=== PATIENT | female | born 1945 | race Caucasian/White ===

== ENCOUNTER 2017-04-15 09:28 | Inpatient (IN) | payer MEDICARE, BC ==
[~2017-04-15] VITALS: Ht 157.5 cm; Wt 74.7 kg
[2017-04-28] MEDS ORDERED: METOPROLOL TARTRATE 25 MG TAB PO PRN (06:45)
[2017-04-28] MEDS ORDERED: INSULIN HUMAN REGULAR 1,000 UNITS/10 ML VIAL SQ PRN (06:45)
[2017-04-28] MEDS ORDERED: SODIUM CHLORID 0.9% 500 ML IV PRN (06:45)
[2017-04-28] MEDS ORDERED: POVIDONE IODINE 5% (ANTISEPSIS KIT) 4 APPLICATIONS EACH NARE PRN (06:45)
[2017-04-28] MEDS ORDERED: CHLORHEXIDINE GLUCONATE 2 % 1 PACK (2 CLOTHS) TOPICAL PRN (06:45)
[2017-04-28] MEDS ORDERED: LACTATED RINGER'S 1000 ML IV PRN (06:45)
--- NOTE | 2017-04-28 06:57 | HHI.DCPOC ---
Discharge Care Plan Diagnosis: (1) Primary localized osteoarthrosis, lower leg (2) Status post total knee replacement, right Your Health Problems Are: Difficulty with ADL Goals to Promote Your Health * To prevent worsening of your condition and complications * To maintain your health at the optimal level Directions to Meet Your Goals Take your medications as prescribed Follow your dietary instruction Follow activity as directed Keep your appointments as scheduled Take your immunizations and boosters as scheduled If your symptoms worsen call your PCP, if no PCP go to Urgent Care Center or Emergency Room Smoking is Dangerous to Your Health. Avoid second hand smoke Call the 24-hour hour crisis hotline for domestic abuse at Simon Baumann Apr 28, 2017 06:57
--- NOTE | 2017-04-28 06:58 | HHI.FF ---
Face to Face Verification Diagnosis: (1) Primary localized osteoarthrosis, lower leg (2) Status post total knee replacement, right Physical Therapy Gait training, Transfer training, bed to chair Knee: Total knee Right LE Weight Bearing: WB as tolerated Right LE Range of Motion: Active ROM Nursing Nursing: Erick teaching, Dressing changes Dressing Changes: Daily dressing change I have seen patient Chantel Horner on 04/28/17. My clinical findings support the need for the requested home health care services because: Limited ability to care for self High risk of falls I certify that my clinical findings support that this patient is homebound because: Post-op weakness Unsteady gait/balance Simon Baumann Apr 28, 2017 06:58
[2017-04-28] MEDS ORDERED: COMMODE 3-IN-11 MIS (06:59)
[2017-04-28] MEDS ORDERED: CPMMACHINE (06:59)
[2017-04-28] MEDS ORDERED: WALKER WHEELS/F1 MIS (06:59)
[2017-04-28] MEDS ORDERED: VANCOMYCIN 1000 MG/NS 250 ML (for <70 kg) IV SCH ×2 (07:00)
[2017-04-28] MEDS ORDERED: ceFAZolin 2 GM PREMIX 50 ML IV SCH (07:00)
[2017-04-28] MEDS ORDERED: DEXAMETHASONE SOD PHOS 20 MG/5 ML VIAL IV PUSH SCH (07:00)
[2017-04-28] MEDS ORDERED: POVIDONE IODINE 7.5% SCRUB 118 ML BOTTLE TOPICAL SCH (07:00)
[2017-04-28] MEDS ORDERED: EZET1TAB8 PO (07:10)
[2017-04-28] MEDS ORDERED: CLON0.1T PO (07:13)
[2017-04-28] MEDS ORDERED: RAMI10CA PO (07:13)
[2017-04-28] MEDS ORDERED: ATOR20TA15 PO (07:13)
[2017-04-28] MEDS ORDERED: METO100T PO (07:13)
[2017-04-28 07:17] VITALS: BP 135/73; PULSE 72; RESP 18; TEMP 98.2; O2SAT 98
[2017-04-28] MEDS ORDERED: TRANEXAMIC ACID INJ 670 MG in SODIUM CHLORIDE 0.9% INJ 100 ML IV SCH ×2 (08:30→10:30)
[2017-04-28] MEDS ORDERED: ROPIVACAINE PERI-ARTICULAR INJECTION. P-ARTICULR SCH ×5 (08:30)
--- NOTE | 2017-04-28 08:34 | EKG ---
Date Performed: 04/28/2017 Time Performed: 07:16:15 PTAGE: 72 years EKG: Sinus rhythm WITH FIRST DEGREE AV BLOCK ABNORMAL ECG NO PREVIOUS TRACING DOCTOR: Reese Bowden Interpretating Date/Time 04/28/2017 08:31:53
[2017-04-28] MEDS ORDERED: BUPIVACAINE LIPOSOME PF 1.3% 20 ML VIAL ONE (09:15)
[2017-04-28] MEDS ORDERED: GENTAMICIN SULFATE 80 MG/2 ML VIAL IRRIGATION ONE (09:25)
--- NOTE | 2017-04-28 10:28 | PD.OP ---
cc: Ramy Montoya MD Operative Report Date of Surgery: Apr 28, 2017 Preoperative Diagnosis: Right knee severe osteoarthritis Postoperative Diagnosis: Same Procedure: Right total knee arthroplasty Anesthesia: Spinal and adductor canal block Surgeon: Ramy Montoya Vice President Of Compliance(s): MARGARITA Georges The surgical procedure was assisted by my Advanced Registered Nurse Practitioner. My ELASTIC YARN TWISTER HELPER presence was necessary throughout this case for the manipulation and positioning of the surgical extremity. My ELASTIC YARN TWISTER HELPER was assisting me throughout the duration of this procedure. The skill set of an Advance Registered Nurse Practitioner was medically necessary to complete this procedure. During the surgical case, the surgical first assistant was working at the back table and the Advance Registered Nurse Practitioner was directly assisting me. Operation and Findings: IMPLANTS: DePuy Attune: Patella: size 32. Femur, posterior stabilized size 4. Tibia, rotating platform size 3. Tibial insert, rotating platform, posterior stabilized size 7 mm thickness. ESTIMATED BLOOD LOSS: 150 cc TOURNIQUET TIME: 37 minutes at 250 mmHg pressure. JUSTIFICATION FOR PROCEDURE: The patient has end-stage osteoarthritis to the knee. There is an attached conservative measures pathway form in the chart that describes the nonoperative measures that were undertaken prior to consideration of surgical management. The patient understood the risks and benefits of surgical management. See my office notes for further details PROCEDURE: The patient was brought back to the operative theatre. Adequate anesthesia was obtained. The patient received intravenous vancomycin and Ancef. The lower extremity was prepped and draped in the usual sterile fashion.The leg was exsanguinated, the tourniquet was raised. A standard anterior incision was performed followed by medial parapatellar arthrotomy was performed. End-stage arthritis was identified. Osteotomy of the patella was performed. We drilled holes for the patella. We trialed the patella component. We placed an intramedullary guide into the distal femur. We ultimately resected 13 mm off of the distal femur in 5 degrees of valgus. The remnants of the ACL and PCL were resected. Osteotomy of the proximal tibia was performed, resecting 5 mm off of the medial side. This was done with 3 degrees of posterior slope using an extramedullary guide. The distal end of the guide was placed in the mid aspect of the ankle. The femur was sized, and four chamfer cuts were completed in 3 of external rotation. We then cut the central box in the distal femur to replace the PCL. We resected the remnants of the menisci and removed osteophytes off of the femur and tibia. We then trialed the knee. We punched the tibia for the keel, and then used standard technique to cement in components. Excess cement was removed. We trialed the knee again and the final polyethylene thickness was chosen to provide extension to 0 degrees, and flexion of 140 degrees to gravity. The ligaments were appropriately balanced. Lateral release was necessary to obtain excellent patellofemoral tracking. The tourniquet was released and adequate hemostasis was obtained. An intra- articular injection of a ropivacaine cocktail was injected. The posterior knee was inspected for excess cement, which was removed. The final polyethylene was put into position after thorough irrigation. We then closed deep fascia with a #2 Stratafix followed by skin with 2-0 Vicryl followed by flash. Postop plan is to weight-bear as tolerated. DVT prophylaxis will be performed with Kermit, JEISON ramirez, early mobilization, and Lovenox followed by aspirin. Ramy Montoya MD Apr 28, 2017 10:28
[2017-04-28] MEDS ORDERED: ENOX40P SQ (10:30)
[2017-04-28] MEDS ORDERED: BISACODYL 10 MG SUPP RECTAL PRN (10:30)
[2017-04-28] MEDS ORDERED: Post-op Orders (for Pharmacy) MISC XX ONE (10:30)
[2017-04-28] MEDS ORDERED: NALOXONE HCL 0.4 MG/ML AMP IV PRN (10:30)
[2017-04-28] MEDS ORDERED: PERC5TAB12 PO (10:30)
[2017-04-28] MEDS ORDERED: MAGNESIUM HYDROXIDE SUSP 30 ML CUP PO PRN (10:30)
[2017-04-28] MEDS ORDERED: AMBI5TAB PO (10:30)
[2017-04-28] MEDS ORDERED: diphenhydrAMINE HCL 50 MG/ML VIAL IV PRN (10:30)
[2017-04-28] MEDS ORDERED: ASPI325T PO (10:30)
[2017-04-28] MEDS ORDERED: oxyCODONE/ACETAMINOPHEN 5 MG/325 MG TAB PO PRN (10:30)
[2017-04-28] MEDS ORDERED: ALUMINUM/MAGNESIUM/SIMETH 30 ML CUP PO PRN (10:30)
[2017-04-28] MEDS ORDERED: MORPHINE SULFATE 4 MG/ML INJ IV PUSH PRN (10:30)
[2017-04-28] MEDS ORDERED: SODIUM CHLORIDE 0.9% FLUSH 5 ML FLUSH IVF PRN (10:30)
[2017-04-28] MEDS ORDERED: ONDANSETRON HCL 4 MG/2 ML VIAL IVP PRN (10:30)
[2017-04-28] MEDS ORDERED: fentaNYL CITRATE 250 MCG/5 ML AMP ONE (11:02)
[2017-04-28] MEDS: SODIUM CHLOR 0.9% 1000 ML INJ 1,000 ML IV SCH ×2 (11:10→21:49)
[2017-04-28] MEDS ORDERED: DO NOT ADM ANY ANTICOAGULANT DRUGS PRN (11:15)
--- NOTE | 2017-04-28 11:40 | RADRPT ---
EXAM DATE/TIME: 04/28/2017 11:16 [place] COMPARISON: No previous studies available for comparison. INDICATIONS : Post-op right knee. MEDICAL HISTORY : None. SURGICAL HISTORY : None. ENCOUNTER: Initial ACUITY: 1 day PAIN SCORE: 0/10 LOCATION: Right Knee. FINDINGS: Two view examination of the right knee demonstrates a total knee arthroplasty in excellent position. There no obvious complications.. CONCLUSION: Status post total knee arthroplasty in excellent position. Reese Quiñones MD on April 28, 2017 at 11:38 Board Certified Radiologist. This report was verified electronically.
[2017-04-28] MEDS ORDERED: *morphine SULFATE 8 MG/ML PERIprocedure ONLY ONE (11:58)
--- NOTE | 2017-04-28 14:29 | PD.CONS ---
HPI Service [facility] Hospitalists Consult Requested By Dr. Montoya Primary Care Physician No Primary Care Physician Diagnoses: (1) Primary localized osteoarthrosis, lower leg (2) Status post total knee replacement, right History of Present Illness Written by Dania Dewitt, acting as scribe for Dr. Begum on 04/28/17 at 1437. Ms. Horner is a 72-year-old female patient with a known medical history of hypertension and hyperlipidemia who underwent a total right knee arthroplasty today by Dr. Montoya 04/28/17. Hospitalist team has been consulted for medical management. Patient states that she has underwent multiple arthroscopic surgeries on bilateral knees in the past. She also has been placed on many hypertension medications by her PCP and wishes to loose weight and wean off as tolerated. Her osteoarthritis in her right knee has worsened requiring multiple cortisone shots and outpatient therapy and overall causing an inability to get adequate exercise. It should be noted before surgery patient was found to have a UTI and treated with antibiotics. Denies any recent illness including fever, chills. cough, shortness of breath, abdominal pain, nausea, vomiting, diarrhea or dysuria. Review of Systems Musculoskeletal: COMPLAINS OF: Joint pain (knee pain ) Except as stated in HPI: all other systems reviewed are Neg Past Family Social History Allergies: Coded Allergies: No Known Allergies (Unverified , 04/28/17) Past Medical History Hypertension Dyslipidemia Past Surgical History Cholecystectomy C2 Earl fracture with halo Multiple arthroscopic surgeries, bilateral knees Reported Medications Reported Meds & Active Scripts Active Ambien (Zolpidem Tartrate) 5 Mg Tab 5 Mg PO HS PRN Aspirin 325 Mg Tab 325 Mg PO DAILY Start Aspirin after Lovenox is completed. Lovenox Inj (Enoxaparin Sodium) 40 Mg/0.4 Ml Syr 40 Mg SQ DAILY Start Aspirin after Lovenox is completed. Percocet (Oxycodone-Acetaminophen) 5-325 mg Tab 1-2 Tab PO Q4H PRN Reported Atorvastatin (Atorvastatin Calcium) 20 Mg Tab 20 Mg PO HS Ramipril 10 Mg Cap 10 Mg PO DAILY Clonidine (Clonidine HCl) 0.1 Mg Tab 0.1 Mg PO BID Metoprolol Tartrate 100 Mg Tab 100 Mg PO BID Ezetimibe 10 Mg Tab 10 Mg PO DAILY Active Ordered Medications Current Medications Medications (Trade) Dose Ordered Sig/Nena Route Start Time Stop Time Status Last Admin Lactated Ringer's 1,000 ml @ 30 mls/hr Q24H PRN IV 04/28/17 06:45 05/01/17 06:44 04/28/17 07:00 (NS 500 ml Inj) 500 ml @ 30 mls/hr [id number] PRN IV 04/28/17 06:45 05/01/17 06:44 Povidone Iodine 1 applic 1 applic ONCE TOPICAL 04/28/17 07:00 05/01/17 06:59 04/28/17 07:00 Tranexamic Acid 670 mg/Sodium Chloride 106.7 ml @ 200 mls/hr ONCE IV 04/28/17 08:30 04/29/17 08:29 04/28/17 09:00 (Naropin 0.5% Pf Inj/Toradol Inj/ Adrenalin (1:1000) Inj/ Duraclon Inj/NS Inj) 100 ml @ 200 mls/hr ONCE P-ARTICULR 04/28/17 08:30 04/29/17 08:29 04/28/17 10:10 (Decadron Inj) 10 mg ONCE IV PUSH 04/28/17 07:00 04/28/17 21:00 04/28/17 07:33 (Lipitor) 20 mg HS PO 04/28/17 21:00 (Catapres) 0.1 mg BID PO 04/28/17 21:00 (Zetia) 10 mg DAILY PO 04/29/17 09:00 (Lopressor) 100 mg BID PO 04/28/17 21:00 Ramipril 10 mg 10 mg DAILY PO 04/29/17 09:00 (NS 1000 ml Inj) 1,000 ml @ 100 mls/hr Q10H IV 04/28/17 12:00 04/28/17 11:10 (NS Flush) 2 ml UNSCH PRN IVF 04/28/17 10:30 IV Flush 2 ml 2 ml BID IVF 04/28/17 21:00 (Ancef Inj/NS Inj) 100 ml @ 200 mls/hr Q6H IV 04/28/17 14:00 04/29/17 02:29 04/28/17 14:00 (Decadron Inj) 10 mg ONCE ONCE IV 04/29/17 11:45 04/29/17 11:46 (Lovenox Inj) 40 mg Q24H SQ 04/29/17 10:00 05/08/17 10:01 (Percocet 5-325 Mg) 1 tab Q4H PRN PO 04/28/17 10:30 (Percocet 5-325 Mg) 2 tab Q4H PRN PO 04/28/17 10:30 (Theragran M Tab) 1 tab BID PO 04/29/17 21:00 06/28/17 20:59 (Zofran Inj) 4 mg Q6H PRN IVP 04/28/17 10:30 (Colace) 100 mg BID PO 04/29/17 21:00 (Mag-Al Plus Susp Liq) 30 ml Q6H PRN PO 04/28/17 10:30 (Ambien) 5 mg HS PRN PO 04/28/17 10:30 (Dulcolax Supp) 10 mg DAILY PRN RECTAL 04/28/17 10:30 (Milk Of Magnesia Liq) 30 ml DAILY PRN PO 04/28/17 10:30 (Narcan Inj) 0.4 mg UNSCH PRN IV 04/28/17 10:30 (Benadryl Inj) 25 mg Q6H PRN IV 04/28/17 10:30 (Morphine Inj) 2 mg Q3H PRN IV PUSH 04/28/17 10:30 Miscellaneous Information ALL NURSING DEPARTME... UNSCH PRN .XX 04/28/17 11:15 04/29/17 11:14 Family History Both paternal and maternal medical history significant for cardiovascular disease. Social History Patient denies any past or current tobacco use. Denies any illicit drug use. Admits to occasional alcohol consumption. Physical Exam Vital Signs Vital Signs Date Time Temp Pulse Resp B/P Pulse Ox O2 Delivery O2 Flow Rate FiO2 04/28/17 12:15 59 16 142/65 100 Nasal Cannula 2 04/28/17 12:00 97.5 61 16 159/71 100 Nasal Cannula 2 04/28/17 11:45 59 25 163/72 100 Nasal Cannula 2 04/28/17 11:30 95.6 58 25 160/72 100 Nasal Cannula 2 04/28/17 11:15 63 25 158/70 100 Nasal Cannula 2 04/28/17 11:00 69 23 168/71 100 Nasal Cannula 2 04/28/17 10:59 95.7 73 14 146/70 98 Nasal Cannula 2 04/28/17 07:17 98.2 72 18 135/73 98 Physical Exam GENERAL: Well-nourished, well-developed patient, in no apparent distress. SKIN: No rashes, ecchymoses or lesions. Warm and dry. Right lower extremity bandage in place, c/d/i. HEENT: Atraumatic. Normocephalic. Pupils equal round and reactive. Extraocular motions intact. No scleral icterus. No injection or drainage. Nose without bleeding. Airway patent. NECK: Trachea midline. No JVD. Supple. CARDIOVASCULAR: Regular rate and rhythm. No murmur appreciated. RESPIRATORY: Clear to auscultation. Breath sounds equal bilaterally. No wheezes , rales, or rhonchi. GASTROINTESTINAL: Abdomen soft, non-tender, nondistended. No guarding. MUSCULOSKELETAL: Extremities without clubbing, cyanosis, or edema. No joint tenderness, effusion, or edema noted. NEUROLOGICAL: Awake and alert. Cranial nerves II through XII intact. Motor and sensory grossly within normal limits. Five out of 5 muscle strength in all muscle groups. Normal speech. Laboratory Laboratory Tests Test 04/28/17 07:01 Blood Type A POSITIVE Antibody Screen NEGATIVE Blood Bank Comment Imaging Last Impressions Knee X-Ray 04/28/17 1024 Signed Impressions: Service Date/Time: Friday, April 28, 2017 11:16 - CONCLUSION: Status post total knee arthroplasty in excellent position. Reese Quiñones MD Assessment and Plan Assessment and Plan Ms. Horner is a 72-year-old female patient with a known medical history of hypertension and hyperlipidemia who underwent a total right knee arthroplasty today by Dr. Montoya 04/28/17. Hospitalist team has been consulted for medical management. Status post total right knee arthroplasty - Post op day 0, 04/28/17 - Dressing changes and immobilizer per ortho recommendations. - Monitor for constipation. Colace 100 mg PO BID. Milk Of Magnesium PRN as needed. - Encourage PO intake. Continue regular diet. - Control pain. Percocet 5/325 mg PO q4h PRN per pain scale. Morphine 2 mg IV PRN breakthrough. - Monitor for nausea, Zofran PRN. Hypertension, chronic: Continue clonidine 0.1 mg PO BID, Ramipril 10 mg PO daily and Metoprolol 100 mg PO BID. Elevated at this time. Monitor BP. Dyslipidemia, chronic: Continue Atorvastatin 20 mg PO HS and Ezetimibe 10 mg PO daily. GI prophylaxis: Protonix DVT prophylaxis: SCDs. Lovenox. Thank you for this consultation. Will follow with you. This note was transcribed by scribe [Dania Dewitt]. I, Dr. Simon Begum personally performed the history, physical exam, and medical decision making; and confirmed the accuracy of the information in the transcribed note. Authenticated by Dr. Simon Begum on 04/28/17 at 16:27. Dania Dewitt Apr 28, 2017 14:29 Simon Begum MD Apr 28, 2017 16:27
[2017-04-28] MEDS: oxyCODONE/ACETAMINOPHEN 5 MG/325 MG TAB PO PRN ×2 (15:40→21:46)
[2017-04-28] MEDS: SODIUM CHLORIDE 0.9% FLUSH 5 ML FLUSH IVF SCH (21:05)
[2017-04-28] MEDS: METOPROLOL TARTRATE 100 MG TAB PO SCH (21:07)
[2017-04-28] MEDS: cloNIDine HCL 0.1 MG TAB PO SCH (21:07)
[2017-04-28] MEDS: ATORVASTATIN 20 MG TAB PO SCH (21:07)
[2017-04-28] MEDS: ZOLPIDEM TARTRATE 5 MG TAB PO PRN (21:46)
[2017-04-28 21:47] VITALS: BP 138/67; PULSE 77; RESP 20; TEMP 99; O2SAT 97
[2017-04-28 21:56] VITALS: BP 138/67; PULSE 77; RESP 20; TEMP 99; O2SAT 97
[2017-04-29] VITALS (7 sets, daily range): BP systolic 117–160; BP diastolic 56–70; PULSE 64–75; RESP 12–18; TEMP 96.2–97.8; O2SAT 94–99
[2017-04-29] MEDS: oxyCODONE/ACETAMINOPHEN 5 MG/325 MG TAB PO PRN ×4 (06:03→20:38)
[2017-04-29 06:21] LABS: HEMATOCRIT 27.8 % (35.0-46.0); MEAN CELL VOLUME 88.8 FL (80.0-100.0); MEAN CORPUSCULAR HEMOGLOBIN 30.1 PG (27.0-34.0); MEAN CORPUSCULAR HGB CONC 33.9 % (32.0-36.0); PLATELET COUNT 169 TH/MM3 (150-450); RED BLOOD COUNT 3.13 MIL/MM3 (4.00-5.30); RED CELL DISTRIBUTION WIDTH 13.2 % (11.6-17.2); REVIEW FLAG FINAL
[2017-04-29 06:48] LABS: BICARBONATE 24.2 MEQ/L (21.0-32.0); POTASSIUM 3.5 MEQ/L (3.5-5.1)
[2017-04-29] MEDS: SODIUM CHLOR 0.9% 1000 ML INJ 1,000 ML IV SCH ×2 (08:00→19:21)
[2017-04-29] MEDS: cloNIDine HCL 0.1 MG TAB PO SCH ×2 (08:35→20:37)
[2017-04-29] MEDS: EZETIMIBE 10 MG TAB PO SCH (08:35)
[2017-04-29] MEDS: METOPROLOL TARTRATE 100 MG TAB PO SCH ×2 (08:35→20:37)
[2017-04-29] MEDS: RAMIPRIL 5 MG CAP PO SCH (08:35)
[2017-04-29] MEDS: SODIUM CHLORIDE 0.9% FLUSH 5 ML FLUSH IVF SCH ×2 (08:36→21:01)
[2017-04-29] MEDS: ENOXAPARIN SODIUM 40 MG/0.4 ML SYRINGE SQ SCH (10:32)
[2017-04-29] MEDS ORDERED: DEXAMETHASONE SOD PHOS 20 MG/5 ML VIAL IV ONE (11:45)
--- NOTE | 2017-04-29 11:56 | PD.ORT.PN ---
Subjective Post Op Day #: 1 Subjective Remarks The patient is resting in bed in NAD. Patient has minimal pain in the right knee. Patient requesting to go home tomorrow with home health. Objective Vitals Vital Signs Date Time Temp Pulse Resp B/P Pulse Ox O2 Delivery O2 Flow Rate FiO2 04/29/17 10:06 94 04/29/17 08:00 97.8 75 18 140/59 94 04/29/17 05:18 97.2 64 12 120/57 98 04/29/17 01:27 97.7 71 12 117/56 95 04/28/17 21:56 99.0 77 20 138/67 97 04/28/17 21:47 99.0 77 20 138/67 97 04/28/17 21:42 21 04/28/17 19:00 98.3 71 20 151/72 96 Room Air 04/28/17 17:00 74 20 164/68 99 Nasal Cannula 2 04/28/17 16:00 69 16 130/61 99 Nasal Cannula 2 04/28/17 15:20 Nasal Cannula 2 04/28/17 15:15 98.3 74 23 117/56 91 Room Air 04/28/17 14:00 71 16 145/65 94 Room Air 04/28/17 13:00 71 16 159/69 97 Room Air 04/28/17 12:30 Room Air 04/28/17 12:15 59 16 142/65 100 Nasal Cannula 2 04/28/17 12:00 97.5 61 16 159/71 100 Nasal Cannula 2 04/28/17 11:45 59 25 163/72 100 Nasal Cannula 2 I/O 04/28/17 04/28/17 04/28/17 04/29/17 04/29/17 04/29/17 07:00 15:00 23:00 07:00 15:00 23:00 Intake Total 1800 ml 2247 ml 480 ml Output Total 350 ml 925 ml 350 ml Balance 1450 ml 1322 ml 130 ml Intake Oral 1440 ml 480 ml IV Total 807 ml Other 1800 ml Output Urine Total 200 ml 925 ml 350 ml Estimated Blood Loss 150 ml Result Diagram: 04/29/17 0603 04/29/17 0603 Procedures Right TKA Objective Remarks Patient's dressing changed today with scant serosanguineous drainage. Incision is well approximated with surgical clips intact. No erythema or s/s of infection. Calf is soft and nontender. EHL/TA/G intact. + SILT. Assessment & Plan Ortho Post Op Day #: 1 Problem List: Assessment and Plan POD #1: Right TKA 1. WBAT RLE 2. Lovenox followed by ASA for DVT prophylaxis 3. Ice to the right knee PRN 4. Anticipatory discharge home with home health on Wednesday. Simon Baumann Apr 29, 2017 11:56
--- NOTE | 2017-04-29 13:54 | HHI.PR ---
Subjective Remarks Doing well postop. No nausea. Pain control. Ambulating well with PT. Tentative discharge for tomorrow. Objective Vital Signs Date Time Temp Pulse Resp B/P Pulse Ox O2 Delivery O2 Flow Rate FiO2 04/29/17 12:00 96.2 69 18 131/62 96 04/29/17 10:06 94 04/29/17 08:00 97.8 75 18 140/59 94 04/29/17 05:18 97.2 64 12 120/57 98 04/29/17 01:27 97.7 71 12 117/56 95 04/28/17 21:56 99.0 77 20 138/67 97 04/28/17 21:47 99.0 77 20 138/67 97 04/28/17 21:42 21 04/28/17 19:00 98.3 71 20 151/72 96 Room Air 04/28/17 17:00 74 20 164/68 99 Nasal Cannula 2 04/28/17 16:00 69 16 130/61 99 Nasal Cannula 2 04/28/17 15:20 Nasal Cannula 2 04/28/17 15:15 98.3 74 23 117/56 91 Room Air 04/28/17 14:00 71 16 145/65 94 Room Air I/O 04/28/17 04/28/17 04/28/17 04/29/17 04/29/17 04/29/17 06:59 14:59 22:59 06:59 14:59 22:59 Intake Total 1800 ml 2247 ml 480 ml Output Total 350 ml 925 ml 350 ml Balance 1450 ml 1322 ml 130 ml Intake Oral 1440 ml 480 ml IV Total 807 ml Other 1800 ml Output Urine Total 200 ml 925 ml 350 ml Estimated Blood Loss 150 ml Result Diagram: 04/29/17 0603 04/29/17 0603 Objective Remarks GENERAL: NAD, A&Ox3 HEAD: Normocephalic. NECK: Supple, trachea midline. No lymphadenopathy. EYES: No scleral icterus. No injection or drainage. CARDIOVASCULAR: Regular rate and rhythm without murmurs, gallops, or rubs. RESPIRATORY: Breath sounds equal bilaterally. No accessory muscle use. GASTROINTESTINAL: Abdomen soft, non-tender, nondistended. MUSCULOSKELETAL: No cyanosis, or edema. Right total knee, bandage. SKIN: Warm and dry. NEURO: No focal neurological deficitis. A/P Problem List: (1) Primary localized osteoarthrosis, lower leg ICD Code: M17.10 (2) Status post total knee replacement, right ICD Code: Z96.651 Assessment and Plan Assessment and Plan 72-year-old female admitted for right total knee. Doing well postop. Continue PT. Possible discharge tomorrow if she continues to do well with physical therapy. Status post total right knee arthroplasty When necessary pain treatments Stool softener as needed Continue PT Continue wound care. Hypertension Twice a day clonidine Ramipril Metoprolol Follow blood pressures Hyperlipidemia Atorvastatin and ezetimibe continued DVT prophylaxis SCDs and Lovenox Discharge planning possible discharge home tomorrow Simon Begum MD Apr 29, 2017 13:54
[2017-04-29] MEDS: ATORVASTATIN 20 MG TAB PO SCH (20:37)
[2017-04-29] MEDS: DOCUSATE SODIUM 100 MG CAP PO SCH (20:37)
[2017-04-29] MEDS: MULTIVITAMINS/MINERALS THERAPEUTIC TAB PO SCH (20:37)
[2017-04-29] MEDS: ZOLPIDEM TARTRATE 5 MG TAB PO PRN (20:38)
[2017-04-30] VITALS: BP 143/68; PULSE 76; RESP 16; TEMP 97.6; O2SAT 95
[2017-04-30] MEDS: SODIUM CHLOR 0.9% 1000 ML INJ 1,000 ML IV SCH ×2 (04:00→14:00)
[2017-04-30] MEDS: oxyCODONE/ACETAMINOPHEN 5 MG/325 MG TAB PO PRN ×3 (05:09→13:42)
[2017-04-30 07:00] LABS: HEMATOCRIT 23.3 % (35.0-46.0); MEAN CORPUSCULAR HEMOGLOBIN 30.6 PG (27.0-34.0); MEAN CORPUSCULAR HGB CONC 35.2 % (32.0-36.0); PLATELET COUNT 151 TH/MM3 (150-450); RED BLOOD COUNT 2.68 MIL/MM3 (4.00-5.30); RED CELL DISTRIBUTION WIDTH 13.2 % (11.6-17.2); REVIEW FLAG FINAL; WHITE BLOOD COUNT 9.1 TH/MM3 (4.0-11.0)
[2017-04-30 07:40] VITALS: BP 133/61; PULSE 66; RESP 17; TEMP 97.9; O2SAT 95
[2017-04-30] MEDS: SODIUM CHLORIDE 0.9% FLUSH 5 ML FLUSH IVF SCH (09:00)
[2017-04-30] MEDS: DOCUSATE SODIUM 100 MG CAP PO SCH (09:21)
[2017-04-30] MEDS: EZETIMIBE 10 MG TAB PO SCH (09:21)
[2017-04-30] MEDS: METOPROLOL TARTRATE 100 MG TAB PO SCH (09:21)
[2017-04-30] MEDS: MULTIVITAMINS/MINERALS THERAPEUTIC TAB PO SCH (09:21)
[2017-04-30] MEDS: cloNIDine HCL 0.1 MG TAB PO SCH (09:21)
[2017-04-30] MEDS: RAMIPRIL 5 MG CAP PO SCH (09:22)
[2017-04-30] MEDS: ENOXAPARIN SODIUM 40 MG/0.4 ML SYRINGE SQ SCH (09:24)
[2017-04-30] MEDS ORDERED: DOCU1CAP39 PO (10:35)
[2017-04-30] MEDS ORDERED: MAGN400S PO (10:35)
[2017-04-30 11:22] VITALS: BP 116/54; PULSE 55; RESP 17; TEMP 95.7; O2SAT 98
--- NOTE | 2017-04-30 13:45 | HHI.PR ---
Subjective Remarks Ambulating well. No complaints of pain when seen. She feels stable for discharge home and medically she is stable for discharge home today. Objective Vital Signs Date Time Temp Pulse Resp B/P Pulse Ox O2 Delivery O2 Flow Rate FiO2 04/30/17 11:22 95.7 55 17 116/54 98 04/30/17 07:40 97.9 66 17 133/61 95 04/30/17 00:00 97.6 76 16 143/68 95 04/29/17 21:53 21 04/29/17 20:00 97.6 68 16 160/66 99 04/29/17 16:00 97.8 66 18 138/70 94 I/O 04/29/17 04/29/17 04/29/17 04/30/17 04/30/17 04/30/17 07:00 15:00 23:00 07:00 15:00 23:00 Intake Total 480 ml 800 ml 480 ml 480 ml Output Total 350 ml 625 ml Balance 130 ml 175 ml 480 ml 480 ml Intake Oral 480 ml 800 ml 480 ml 480 ml Output Urine Total 350 ml 625 ml # Voids 1 2 # Bowel Movements 0 Result Diagram: 04/30/17 0628 04/29/17 0603 Objective Remarks GENERAL: NAD, A&Ox3 HEAD: Normocephalic. NECK: Supple, trachea midline. No lymphadenopathy. EYES: No scleral icterus. No injection or drainage. CARDIOVASCULAR: Regular rate and rhythm without murmurs, gallops, or rubs. RESPIRATORY: Breath sounds equal bilaterally. No accessory muscle use. GASTROINTESTINAL: Abdomen soft, non-tender, nondistended. MUSCULOSKELETAL: No cyanosis, or edema. Right total knee, bandage. SKIN: Warm and dry. NEURO: No focal neurological deficitis. A/P Problem List: (1) Primary localized osteoarthrosis, lower leg ICD Code: M17.10 (2) Status post total knee replacement, right ICD Code: Z96.651 Assessment and Plan Assessment and Plan 72-year-old female admitted for right total knee. Doing well postop. Continue PT. Possible discharge tomorrow if she continues to do well with physical therapy. Plan for discharge home today. Continue outpatient PT. Status post total right knee arthroplasty When necessary pain treatments Stool softener as needed Continue PT Continue wound care. Hypertension Twice a day clonidine Ramipril Metoprolol Follow blood pressures Hyperlipidemia Atorvastatin and ezetimibe continued DVT prophylaxis SCDs and Lovenox Discharge planning Discharge home today. Simon Begum MD Apr 30, 2017 13:45
--- NOTE | 2017-04-30 16:40 | HHI.DS ---
Discharge Summary Admission Date Apr 28, 2017 at 06:22 Discharge Date: Apr 30, 2017 Admitting Diagnosis Primary localized OA, lower leg Status post total knee replacement, right Diagnosis: (1) Primary localized osteoarthrosis, lower leg Diagnosis: Principal (2) Status post total knee replacement, right Diagnosis: Principal Procedures Right TKA Brief History This is a 72 year old female patient with severe OA of the right knee CBC/BMP: 04/30/17 0628 04/29/17 0603 Significant Findings Laboratory Tests Test 04/29/17 04/30/17 06:03 06:28 White Blood Count 13.0 TH/MM3 (4.0-11.0) Red Blood Count 3.13 MIL/MM3 2.68 MIL/MM3 (4.00-5.30) (4.00-5.30) Hemoglobin 9.4 GM/DL 8.2 GM/DL (11.6-15.3) (11.6-15.3) Hematocrit 27.8 % 23.3 % (35.0-46.0) (35.0-46.0) Blood Urea Nitrogen 21 MG/DL (7-18) Creatinine 1.04 MG/DL (0.50-1.00) Estimat Glomerular Filtration 52 ML/MIN (>89) Rate Random Glucose 150 MG/DL (74-106) Calcium Level 8.2 MG/DL (8.5-10.1) PE at Discharge Patient's dressing changed today with scant serosanguineous drainage. Incision is well approximated with surgical clips intact. No erythema or s/s of infection. Calf is soft and nontender. EHL/TA/G intact. + SILT. Hospital Course The patient was admitted to the hospital with severe OA of the right knee to have a right TKA. The patient's surgery went well without complication. The patient is WBAT on the RLE. The patient is on a regular diet. The patient is on Lovenox followed by ASA for DVT prophylaxis. The patient was discharged home with home health and will f/u with Dr. Montoya in 1-2 weeks as previously scheduled. Pt Condition on Discharge: Stable Discharge Disposition: Disch w/ Home Health Serv Discharge Instructions Diet Instructions: As Tolerated, No Restrictions Activities You Can Perform: Weight Bearing as Tin Activities to Avoid: Strenuous Activity Follow up Referrals: Orthopedics with Ramy Montoya MD New Medications: Aspirin (Aspirin) 325 Mg Tab 325 MG PO DAILY Start Aspirin after Lovenox is completed. Prevent Blood Clot # 30 Ref 0 TAB Commode 3-in-1 (Commode 3-in-1) 1 Mis Mis 1 EA .ROUTE DIRECTED #1 Ref 0 EA CPM-Continuous Passive Motion Machine (CPM-Continuous Passive Motion Machine) 1 Ea Device 1 EA .ROUTE DIRECTED #1 Ref 0 EA Enoxaparin Inj (Lovenox Inj) 40 Mg/0.4 Ml Syr 40 MG SQ DAILY Start Aspirin after Lovenox is completed. Blood Clot Prevention # 10 Ref 0 SYRINGE Oxycodone-Acetaminophen (Percocet) 5-325 mg Tab 1-2 TAB PO Q4H PRN PAIN #60 Ref 0 TAB Walker with Front Wheels (Walker with Front Wheels) 1 Mis Mis 1 EA .ROUTE DIRECTED #1 Ref 0 EA Zolpidem (Ambien) 5 Mg Tab 5 MG PO HS PRN INSOMNIA #10 Ref 0 TAB Docusate Sodium (Dok) 100 Mg Cap 100 MG PO BID Constipation #30 CAP Magnesium Hydroxide (Eq Milk of Magnesia) 1,200 Mg/15 Ml Kiki 30 ML PO DAILY PRN CONSTIPATION #15 BOTTLE Simon Baumann Apr 30, 2017 16:40
== END 2017-04-30 16:12 | disposition home health service (06) | DRG 470 ==
LOC: HSDI 04-28 06:22 → EDUNIT# 04-28 10:00 → N06A 04-28 19:56
PROVIDERS: ADMIT Orthopaedic Surgery; ATTEND Orthopaedic Surgery
PROC: 0SRC0J9 Replacement of Right Knee Joint with Synthetic Substitute, Cemented, Open Approach (ICD-10-PCS; principal; 2017-04-28 08:11)
DX: M17.11 Unilateral primary osteoarthritis, right knee (principal); N39.0 Urinary tract infection, site not specified; I10 Essential (primary) hypertension; E78.5 Hyperlipidemia, unspecified
CPT/HCPCS: 73560; 80048; 85027; 86850; 86900; 86901; 93005; 94150; C9290; J0171; J0690; J0735; J1100; J1580; J1650; J1885; J2270; J2795; J3010; J3370; J7030; J7050; J7120; L1830

== ENCOUNTER → 2017-04-16 | Outpatient (CLI) | payer MEDICARE, BC ==
[~2017-04-16] MED LIST: AMBI5TAB PO; ASPI325T PO; ATOR20TA15 PO; CLON0.1T PO; COMMODE 3-IN-11 MIS; CPMMACHINE; DOCU1CAP39 PO; ENOX40P SQ; EZET1TAB8 PO; MAGN400S PO; METO100T PO; PERC5TAB12 PO; RAMI10CA PO; WALKER WHEELS/F1 MIS
== END ==
LOC: CPRE 11:44
PROVIDERS: ATTEND Orthopaedic Surgery
DX: Z01.810 Encounter for preprocedural cardiovascular examination (principal); Z01.811 Encounter for preprocedural respiratory examination; Z01.812 Encounter for preprocedural laboratory examination; Z96.60 Presence of unspecified orthopedic joint implant; M79.609 Pain in unspecified limb; M25.50 Pain in unspecified joint; M17.11 Unilateral primary osteoarthritis, right knee

== ENCOUNTER → 2017-10-08 | Outpatient (CLI) | payer MEDICARE, BC ==
[~2017-10-08] MED LIST changes: +ALLO300T2 PO; +ASPI-183 PO; -ASPI325T PO; +DIPH-148 PO
[2017-10-08 10:49] LABS: BASOPHIL % 0.6 % (0.0-2.0); EOSINOPHIL # 0.3 TH/MM3 (0-0.4); EOSINOPHIL % 3.7 % (0.0-4.0); HEMATOCRIT 32.7 % (35.0-46.0); HEMOGLOBIN 10.7 GM/DL (11.6-15.3); LYMPH % 14.6 % (9.0-44.0); MEAN CELL VOLUME 89.7 FL (80.0-100.0); MEAN CORPUSCULAR HEMOGLOBIN 29.3 PG (27.0-34.0); MEAN CORPUSCULAR HGB CONC 32.6 % (32.0-36.0); MEAN PLATELET VOLUME 8.9 FL (7.0-11.0); MONO % 8.1 % (0.0-8.0); MONOCYTE # 0.6 TH/MM3 (0-0.9); PLATELET COUNT 324 TH/MM3 (150-450); RED BLOOD COUNT 3.65 MIL/MM3 (4.00-5.30); RED CELL DISTRIBUTION WIDTH 14.9 % (11.6-17.2); WHITE BLOOD COUNT 6.8 TH/MM3 (4.0-11.0)
[2017-10-08 10:53] LABS: PROTHROMBIN TIME - PATIENT 10.2 SEC (9.8-11.6)
[2017-10-08 11:06] LABS: ALBUMIN 3.6 GM/DL (3.4-5.0); ALT (GPT) 20 U/L (10-53); AST (GOT) 18 U/L (15-37); BICARBONATE 26.4 MEQ/L (21.0-32.0); BLOOD UREA NITROGEN 43 MG/DL (7-18); CALCIUM 9.1 MG/DL (8.5-10.1); CHLORIDE 105 MEQ/L (98-107); CREATININE 1.57 MG/DL (0.50-1.00); GLOMERULAR FILTRATION RATE 32 ML/MIN (>89); GLUCOSE,FASTING 96 MG/DL (74-99); SODIUM (NA) 141 MEQ/L (136-145)
[2017-10-08 11:08] LABS: ALKALINE PHOSPHATASE 144 U/L (45-117); TOTAL BILIRUBIN ADULT 0.6 MG/DL (0.2-1.0); TOTAL PROTEIN 7.1 GM/DL (6.4-8.2)
[2017-10-08 11:21] LABS: WESTERGREN SEDIMENTATION RATE 45 mm/hr (0-30)
--- NOTE | 2017-10-08 11:27 | RADRPT ---
EXAM DATE/TIME: 10/08/2017 11:11 [facility] COMPARISON: No previous studies available for comparison. INDICATIONS : Evaluate for pneumonia, pneumothorax or communicable disease. Pre op for left knee surgery 10-27-17 MEDICAL HISTORY : None. SURGICAL HISTORY : None. ENCOUNTER: Initial ACUITY: 1 day PAIN SCORE: 0/10 LOCATION: Bilateral chest FINDINGS: PA and lateral views of the chest demonstrate the lungs to be symmetrically aerated without evidence of mass, infiltrate or effusion. The cardiomediastinal contours are unremarkable. Osseous structure s are intact. There are partially calcified breast implants. Patient status post cholecystectomy. Ath erosclerotic changes are present in the aorta with calcification. CONCLUSION: No acute disease. Moe Bansal MD on October 08, 2017 at 11:21 Board Certified Radiologist. This report was verified electronically.
[2017-10-08 11:35] LABS: BILIRUBIN, URINE NEG (NEG); BLOOD, URINE NEG (NEG); GLUCOSE,URINE NEG (NEG); HYALINE CAST, URINE 3 /lpf (RARE); KETONE, URINE NEG (NEG); MUCUS URINE FEW /lpf (OCC); NITRITE,URINE NEG (NEG); SQUAMOUS EPITHELIAL CELL URINE <1 /hpf (0-5); URINE COLOR LIGHT-YELLOW (YELLW/STRAW); URINE LEUKOCYTE ESTERASE NEG (NEG)
--- NOTE | 2017-10-08 15:17 | EKG ---
Date Performed: 10/08/2017 Time Performed: 10:44:14 PTAGE: 72 years EKG: Sinus rhythm with borderline 1st degree A-V block Since previous tracing, no significant change noted Borderline ECG PREVIOUS TRACING : 04/28/2017 07.16.15 DOCTOR: Nick Campa Interpretating Date/Time 10/08/2017 15:16:27
== END ==
LOC: CPRE 09:57
PROVIDERS: ATTEND Orthopaedic Surgery
DX: Z01.810 Encounter for preprocedural cardiovascular examination (principal); Z01.811 Encounter for preprocedural respiratory examination; Z01.812 Encounter for preprocedural laboratory examination; M17.12 Unilateral primary osteoarthritis, left knee; R94.31 Abnormal electrocardiogram [ECG] [EKG]
CPT/HCPCS: 36415; 71020; 80053; 81001; 85025; 85610; 85652; 85730; 93005

== ENCOUNTER 2017-10-27 07:35 | Inpatient (IN) | payer MEDICARE, BC ==
[~2017-10-27] VITALS: Ht 157.5 cm; Wt 68.4 kg
[~2017-10-27 07:35] MED LIST changes: -AMBI5TAB PO; -ASPI-183 PO; -CLON0.1T PO; -COMMODE 3-IN-11 MIS; -CPMMACHINE; -DOCU1CAP39 PO; -ENOX40P SQ; -MAGN400S PO; -PERC5TAB12 PO; -RAMI10CA PO; -WALKER WHEELS/F1 MIS
[2017-10-27] MEDS ORDERED: LACTATED RINGER'S 1000 ML IV PRN (08:30)
[2017-10-27] MEDS ORDERED: VANCOMYCIN 1000 MG/NS 250 ML (for <70 kg) IV SCH ×2 (08:30)
[2017-10-27] MEDS ORDERED: POVIDONE IODINE 5% (ANTISEPSIS KIT) 4 APPLICATIONS EACH NARE PRN (08:30)
[2017-10-27] MEDS ORDERED: SODIUM CHLORID 0.9% 500 ML IV PRN (08:30)
[2017-10-27] MEDS ORDERED: ceFAZolin 2 GM PREMIX 50 ML IV SCH (08:30)
[2017-10-27] MEDS ORDERED: POVIDONE IODINE 7.5% SCRUB 118 ML BOTTLE TOPICAL SCH (08:30)
[2017-10-27] MEDS ORDERED: METOPROLOL TARTRATE 25 MG TAB PO PRN (08:30)
[2017-10-27] MEDS ORDERED: CHLORHEXIDINE GLUCONATE 2 % 1 PACK (2 CLOTHS) TOPICAL PRN (08:30)
[2017-10-27] MEDS ORDERED: DEXAMETHASONE SOD PHOS 20 MG/5 ML VIAL IV SCH (08:30)
[2017-10-27] MEDS ORDERED: SODIUM CHLORIDE 0.9% IV SCH ×2 (10:00→15:00)
[2017-10-27] MEDS ORDERED: TRANEXAMIC ACID IV SCH ×2 (10:00→15:00)
[2017-10-27] MEDS ORDERED: ROPIVACAINE PERI-ARTICULAR INJECTION. P-ARTICULR SCH ×5 (10:00)
[2017-10-27] MEDS ORDERED: GENTAMICIN SULFATE 80 MG/2 ML VIAL ONE (10:50)
--- NOTE | 2017-10-27 11:59 | HHI.DCPOC ---
Discharge Care Plan Diagnosis: (1) Status post total knee replacement, left (2) Primary localized osteoarthrosis, lower leg Your Health Problems Are: Difficulty with ADL Goals to Promote Your Health * To prevent worsening of your condition and complications * To maintain your health at the optimal level Directions to Meet Your Goals Take your medications as prescribed Follow your dietary instruction Follow activity as directed Keep your appointments as scheduled Take your immunizations and boosters as scheduled If your symptoms worsen call your PCP, if no PCP go to Urgent Care Center or Emergency Room Smoking is Dangerous to Your Health. Avoid second hand smoke Call the 24-hour hour crisis hotline for domestic abuse at Simon Baumann Oct 27, 2017 11:59
--- NOTE | 2017-10-27 12:00 | HHI.FF ---
Face to Face Verification Diagnosis: (1) Primary localized osteoarthrosis, lower leg (2) Status post total knee replacement, left Physical Therapy Gait training, Transfer training, bed to chair Knee: Total knee Left LE Weight Bearing: WB as tolerated Left LE Range of Motion: Active ROM Nursing Nursing: Erick teaching Dressing Changes: Do not change dressing Additional Instructions First dressing change in office I have seen patient Chantel Horner on 10/27/17. My clinical findings support the need for the requested home health care services because: Limited ability to care for self High risk of falls I certify that my clinical findings support that this patient is homebound because: Post-op weakness Unsteady gait/balance Simon Baumann Oct 27, 2017 12:00
[2017-10-27] MEDS ORDERED: COMMODE 3-IN-11 MIS (12:02)
[2017-10-27] MEDS ORDERED: WALKER WHEELS/F1 MIS (12:02)
[2017-10-27] MEDS ORDERED: CPMMACHINE (12:02)
--- NOTE | 2017-10-27 13:22 | PD.OP ---
cc: Ramy Montoya MD Operative Report Date of Surgery: Oct 27, 2017 Preoperative Diagnosis: Left knee severe osteoarthritis Postoperative Diagnosis: same Procedure: Left total knee arthroplasty Anesthesia: Spinal, adductor canal block, general Surgeon: Ramy Montoya [employer] Administrator(s): MARGARITA Georges The surgical procedure was assisted by my Advanced Registered Nurse Practitioner. My DAG COATER presence was necessary throughout this case for the manipulation and positioning of the surgical extremity. My DAG COATER was assisting me throughout the duration of this procedure. The skill set of an Advance Registered Nurse Practitioner was medically necessary to complete this procedure. During the surgical case, the rn medical surgical was working at the back table and the Advance Registered Nurse Practitioner was directly assisting me. Operation and Findings: IMPLANTS: DePuy Attune: Patella: size 32. Femur, posterior stabilized size 5 narrow. Tibia, rotating platform size 4. Tibial insert, rotating platform, posterior stabilized size 5 mm thickness. ESTIMATED BLOOD LOSS: 150 cc TOURNIQUET TIME: 37 minutes at 250 mmHg pressure. JUSTIFICATION FOR PROCEDURE: The patient has end-stage osteoarthritis to the knee. There is an attached conservative measures pathway form in the chart that describes the nonoperative measures that were undertaken prior to consideration of surgical management. The patient understood the risks and benefits of surgical management. See my office notes for further details PROCEDURE: The patient was brought back to the operative theatre. Adequate anesthesia was obtained. The patient received intravenous vancomycin and Ancef. The lower extremity was prepped and draped in the usual sterile fashion.The leg was exsanguinated, the tourniquet was raised. A standard anterior incision was performed followed by medial parapatellar arthrotomy was performed. End-stage arthritis was identified. Osteotomy of the patella was performed. We drilled holes for the patella. We trialed the patella component. We placed an intramedullary guide into the distal femur. We ultimately resected 14 mm off of the distal femur in 5 degrees of valgus. The remnants of the ACL and PCL were resected. Osteotomy of the proximal tibia was performed, resecting 5 mm off of the medial side. This was done with 3 degrees of posterior slope using an extramedullary guide. The distal end of the guide was placed in the mid aspect of the ankle. The femur was sized, and four chamfer cuts were completed in 3 of external rotation. We then cut the central box in the distal femur to replace the PCL. We resected the remnants of the menisci and removed osteophytes off of the femur and tibia. We then trialed the knee. We punched the tibia for the keel, and then used standard technique to cement in components. Excess cement was removed. We trialed the knee again and the final polyethylene thickness was chosen to provide extension to 0 degrees, and flexion of 140 degrees to gravity. The ligaments were appropriately balanced. Lateral release was necessary to obtain excellent patellofemoral tracking. The tourniquet was released and adequate hemostasis was obtained. An intra- articular injection of a ropivacaine cocktail was injected. The posterior knee was inspected for excess cement, which was removed. The final polyethylene was put into position after thorough irrigation. We then closed deep fascia with a #2 Stratafix followed by skin with 2-0 Vicryl followed by flash. Postop plan is to weight-bear as tolerated. DVT prophylaxis will be performed with Kermit, JEISON ramirez, early mobilization, and Lovenox followed by aspirin. Ramy Montoya MD Oct 27, 2017 13:22
[2017-10-27] MEDS ORDERED: traMADol HCL 50 MG TAB PO PRN ×2 (13:30)
[2017-10-27] MEDS ORDERED: Post-op Orders (for Pharmacy) XX ONE (13:30)
[2017-10-27] MEDS ORDERED: diphenhydrAMINE HCL 50 MG/ML VIAL IV PUSH PRN (13:30)
[2017-10-27] MEDS ORDERED: ALUMINUM/MAGNESIUM/SIMETH 30 ML CUP PO PRN (13:30)
[2017-10-27] MEDS ORDERED: MORPHINE SULFATE 4 MG/ML INJ IV PUSH PRN (13:30)
[2017-10-27] MEDS ORDERED: ONDANSETRON HCL 4 MG/2 ML VIAL IVP PRN (13:30)
[2017-10-27] MEDS ORDERED: BISACODYL 10 MG SUPP RECTAL PRN (13:30)
[2017-10-27] MEDS ORDERED: MAGNESIUM HYDROXIDE SUSP 30 ML CUP PO PRN (13:30)
[2017-10-27] MEDS ORDERED: NALOXONE HCL 0.4 MG/ML AMP IV PUSH PRN (13:30)
[2017-10-27] MEDS ORDERED: DO NOT ADM ANY ANTICOAGULANT DRUGS PRN (13:51)
[2017-10-27] MEDS: SODIUM CHLOR 0.9% 1000 ML INJ 1,000 ML IV SCH ×2 (14:00→23:56)
[2017-10-27] MEDS ORDERED: MIDAZOLAM HCL 2 MG/2 ML VIAL ONE (14:03)
--- NOTE | 2017-10-27 14:36 | RADRPT ---
EXAM DATE/TIME: 10/27/2017 14:20 [facility] COMPARISON: No previous studies available for comparison. INDICATIONS : Post-op left total knee arthroplasty. MEDICAL HISTORY : None. SURGICAL HISTORY : Total knee replacement, right. ENCOUNTER: Initial ACUITY: 1 day PAIN SCORE: 0/10 LOCATION: Left knee FINDINGS: Two view examination of the left knee demonstrates the patient had a total knee arthroplasty without complication. CONCLUSION: Total knee arthroplasty without complication. Reese Quiñones MD on October 27, 2017 at 14:32 Board Certified Radiologist. This report was verified electronically.
[2017-10-27] MEDS ORDERED: *morphine SULFATE 10 MG/ML PERIprocedure ONLY ONE (14:56)
[2017-10-27] MEDS: METOPROLOL TARTRATE 100 MG TAB PO SCH (20:39)
[2017-10-27 20:44] VITALS: BP 140/63; PULSE 83; RESP 17; TEMP 96.5; O2SAT 99
[2017-10-27] MEDS ORDERED: ZOLPIDEM TARTRATE 5 MG TAB PO PRN (21:00)
[2017-10-27] MEDS ORDERED: ATORVASTATIN 20 MG TAB PO SCH (21:00)
[2017-10-27 23:39] VITALS: BP 115/57; PULSE 74; RESP 18; TEMP 96.7; O2SAT 94
[2017-10-28 04:20] VITALS: BP 100/49; PULSE 76; RESP 18; TEMP 96.9; O2SAT 96
[2017-10-28 05:47] LABS: HEMATOCRIT 24.3 % (35.0-46.0); HEMOGLOBIN 8.2 GM/DL (11.6-15.3); MEAN CORPUSCULAR HEMOGLOBIN 30.1 PG (27.0-34.0); MEAN CORPUSCULAR HGB CONC 33.8 % (32.0-36.0); MEAN PLATELET VOLUME 9.5 FL (7.0-11.0); PLATELET COUNT 180 TH/MM3 (150-450); RED BLOOD COUNT 2.72 MIL/MM3 (4.00-5.30); RED CELL DISTRIBUTION WIDTH 14.5 % (11.6-17.2); WHITE BLOOD COUNT 14.3 TH/MM3 (4.0-11.0)
[2017-10-28] MEDS ORDERED: DEXAMETHASONE SOD PHOS 20 MG/5 ML VIAL IV ONE (07:45)
[2017-10-28 08:00] VITALS: BP 99/50; PULSE 72; RESP 18; TEMP 96.9; O2SAT 95
[2017-10-28] MEDS: METOPROLOL TARTRATE 100 MG TAB PO SCH (08:41)
[2017-10-28] MEDS ORDERED: EZETIMIBE 10 MG TAB PO SCH (09:00)
[2017-10-28] MEDS ORDERED: ALLOPURINOL 300 MG TAB PO SCH (09:00)
[2017-10-28] MEDS ORDERED: PNEUMOCOCCAL POLYVALENT INJ 25 MCG/0.5 ML SYR IM ONE (10:00)
[2017-10-28] MEDS: SODIUM CHLOR 0.9% 1000 ML INJ 1,000 ML IV SCH (10:00)
--- NOTE | 2017-10-28 11:06 | PD.CONS ---
HPI Service [facility] Hospitalists Consult Requested By Orthopedic surgery Reason for Consult Medical management Primary Care Physician Juan Presley M.D. Diagnoses: History of Present Illness Ms. Horner is a pleasant 72-year-old female with a history of hypertension, hyperlipidemia underwent left total knee arthroplasty on 2017. Hospitalist service was consulted for medical management. Patient currently does not have any acute medical concerns. However, we discussed regarding her blood pressure and blood pressure medications. Patient reports that her blood pressure is labile - sometimes very high and sometimes too low. Recently she was in the shower and she passed out once. She also reports that sometimes she notices her heart rate is in the 40s. She sees her primary care physician as well as a medical interpreter with regards to hypertension. She denies any other cardiac history. At the time of this interview, patient is doing well. Sitting in her chair. Denies any chest pain, shortness of breath, fever or chills. Review of Systems Except as stated in HPI: all other systems reviewed are Neg Past Family Social History Allergies: Coded Allergies: No Known Allergies (Unverified Allergy, Unknown, 10/08/17) Sulfa (Sulfonamide Antibiotics) (Verified Allergy, Unknown, NAUSEA, ) Past Medical History Hypertension Dyslipidemia Past Surgical History Cholecystectomy, C2 fracture with halo Multiple arthroscopic surgeries, bilateral knees. Reported Medications Ezetimibe 10mg Qday Atorvastatin 10 mg by mouth daily at bedtime Metoprolol tartrate 100 mg twice a day Allopurinol 300 mg daily Family History Both paternal and maternal medical history significant for cardiovascular disease. Social History Patient denies any past or current tobacco use. Denies any illicit drug use. Physical Exam Vital Signs Vital Signs Date Time Temp Pulse Resp B/P (MAP) Pulse Ox O2 Delivery O2 Flow Rate FiO2 10/28/17 08:00 96.9 72 18 99/50 (66) 95 10/28/17 04:20 96.9 76 18 100/49 (66) 96 10/27/17 23:39 96.7 74 18 115/57 (76) 94 10/27/17 20:44 96.5 83 17 140/63 (88) 99 10/27/17 16:45 97.7 63 16 121/59 (79) 97 Room Air 10/27/17 16:00 65 16 120/58 (78) 97 Room Air 10/27/17 15:30 64 16 119/55 (76) 96 Room Air 10/27/17 15:01 15 10/27/17 15:00 97.6 66 15 117/58 (77) 95 Room Air 10/27/17 14:45 68 15 119/59 (79) 94 Room Air 10/27/17 14:30 69 15 112/57 (75) 94 Room Air 10/27/17 14:15 72 15 111/56 (74) 100 Nasal Cannula 2 10/27/17 14:00 76 15 110/52 (71) 99 Nasal Cannula 2 10/27/17 13:45 97.7 78 20 104/55 (71) 98 Nasal Cannula 2 Physical Exam GENERAL: This is a well-nourished, well-developed patient, in no apparent distress. SKIN: No rashes, ecchymoses or lesions. Warm and dry. HEAD: Atraumatic. Normocephalic. No temporal or scalp tenderness. EYES: Pupils equal round and reactive. No injection or drainage. ENT: Nose without bleeding, purulent drainage or septal hematoma. Airway patent. NECK: Trachea midline. No lymphadenopathy. Supple, nontender, no meningeal signs. CARDIOVASCULAR: Regular rate and rhythm without murmurs, gallops, or rubs. No JVD. RESPIRATORY: Clear to auscultation. Breath sounds equal bilaterally. No wheezes , rales, or rhonchi. GASTROINTESTINAL: Abdomen soft, non-tender, nondistended. No guarding. MUSCULOSKELETAL: Extremities without clubbing, cyanosis, or edema. Status post left total knee arthroplasty NEUROLOGICAL: Awake and alert. Cranial nerves II through XII intact. No focal neurological deficits. Normal speech. Laboratory Laboratory Tests Test 10/28/17 05:25 White Blood Count 14.3 Red Blood Count 2.72 Hemoglobin 8.2 Hematocrit 24.3 Mean Corpuscular Volume 89.0 Mean Corpuscular Hemoglobin 30.1 Mean Corpuscular Hemoglobin Concent 33.8 Red Cell Distribution Width 14.5 Platelet Count 180 Mean Platelet Volume 9.5 Result Diagram: 10/28/17 0525 Imaging Last Impressions Knee X-Ray 10/27/17 1318 Signed Impressions: Service Date/Time: Friday, October 27, 2017 14:20 - CONCLUSION: Total knee arthroplasty without complication. Reese Quiñones MD Assessment and Plan Problem List: (1) Status post total knee replacement, left ICD Code: Z96.652 - Presence of left artificial knee joint (2) Hyperlipidemia ICD Code: E78.5 - Hyperlipidemia, unspecified (3) Hypertension ICD Code: I10 - Essential (primary) hypertension Assessment and Plan Ms. Horner is a pleasant 72-year-old female who lives by herself in a history of hypertension, hyperlipidemia who was admitted to the hospital due to elective left total knee arthroplasty. Post surgery patient is currently doing well. However she mentions that her blood pressure is labile at home. She had at least one episode of syncope while taking shower at home. - Left knee osteoarthritis - Status post left total knee arthroplasty - Continue Toradol for pain. Docusate, milk of magnesia for bowel regimen. - Hypertension - Hyperlipidemia - Continue Lipitor 20 mg daily at bedtime and Zetia 10 mg daily. - Patient takes metoprolol 100 mg twice a day. Her reported syncope and bradycardia are very concerning especially because she lives by herself. - We'll reduce metoprolol to 25 mg twice a day with holding parameters. Hold metoprolol if systolic blood pressure less than 110 or heart rate below 65. - We'll also introduce amlodipine 2.5 mg daily for blood pressure with holding parameters as well. Blood pressure medication may have to be titrated by outpatient providers. - Encouraged patient to check BP at home and discuss with her providers (PCP , Cardiology) with regards to titrating her meds. Full code. Lovenox. Thank you for the consult. Patient can be discharged home from medical standpoint. We will continue to follow while patient is in the hospital. Yenni Lopez DO Oct 28, 2017 11:06 am
[2017-10-28] MEDS ORDERED: METO25TA3 PO (11:42)
[2017-10-28] MEDS ORDERED: AMLO2.5T PO (11:42)
[2017-10-28 12:00] VITALS: BP 121/61; PULSE 61; RESP 18; TEMP 96.9; O2SAT 99
--- NOTE | 2017-10-28 12:32 | PD.ORT.PN ---
Subjective Post Op Day #: 1 Subjective Remarks The patient is OOB in chair, dressed, and ready for discharge home with home health. Objective Vitals Vital Signs Date Time Temp Pulse Resp B/P (MAP) Pulse Ox O2 Delivery O2 Flow Rate FiO2 10/28/17 08:00 96.9 72 18 99/50 (66) 95 10/28/17 04:20 96.9 76 18 100/49 (66) 96 10/27/17 23:39 96.7 74 18 115/57 (76) 94 10/27/17 20:44 96.5 83 17 140/63 (88) 99 10/27/17 16:45 97.7 63 16 121/59 (79) 97 Room Air 10/27/17 16:00 65 16 120/58 (78) 97 Room Air 10/27/17 15:30 64 16 119/55 (76) 96 Room Air 10/27/17 15:01 15 10/27/17 15:00 97.6 66 15 117/58 (77) 95 Room Air 10/27/17 14:45 68 15 119/59 (79) 94 Room Air 10/27/17 14:30 69 15 112/57 (75) 94 Room Air 10/27/17 14:15 72 15 111/56 (74) 100 Nasal Cannula 2 10/27/17 14:00 76 15 110/52 (71) 99 Nasal Cannula 2 10/27/17 13:45 97.7 78 20 104/55 (71) 98 Nasal Cannula 2 I/O 10/27/17 10/27/17 10/27/17 10/28/17 10/28/17 10/28/17 07:00 15:00 23:00 07:00 15:00 23:00 Intake Total 600 ml 720 ml 480 ml Output Total 3150 ml 650 ml Balance -2550 ml 70 ml 480 ml Intake Oral 720 ml 480 ml IV Total 600 ml Output Urine Total 650 ml Estimated Blood Loss 150 ml Other 3000 ml # Voids 1 1 # Bowel Movements 0 0 Result Diagram: 10/28/17 0525 Imaging Last 24 hours Impressions Knee X-Ray 10/27/17 1318 Signed Impressions: Service Date/Time: Friday, October 27, 2017 14:20 - CONCLUSION: Total knee arthroplasty without complication. Reese Quiñones MD Procedures Left TKA Objective Remarks Dressing is C/D/I. EHL/TA/G intact. 2+ pedal pulse. Calf is soft and nontender. + SILT. Assessment & Plan Ortho Post Op Day #: 1 Problem List: Assessment and Plan POD #1: Left TKA 1. WBAT LLE 2. Lovenox followed by ASA for DVT prophylaxis 3. Ice to the left knee PRN 4. Stable for discharge home with home health today 5. F/U in the office with Dr. Montoya or MARGARITA Parker as previously scheduled. Simon Baumann Oct 28, 2017 12:32
[2017-10-28] MEDS ORDERED: ENOXAPARIN SODIUM 40 MG/0.4 ML SYRINGE SQ SCH (13:00)
[2017-10-28] MEDS ORDERED: MULTIVITAMINS/MINERALS THERAPEUTIC TAB PO SCH (21:00)
[2017-10-28] MEDS ORDERED: DOCUSATE SODIUM 100 MG CAP PO SCH (21:00)
--- NOTE | 2017-10-31 22:21 | HHI.DS ---
Discharge Summary Admission Date Oct 27, 2017 at 07:35 Discharge Date: Oct 28, 2017 Admitting Diagnosis Primary localized OA, lower leg Status post total knee replacement, left Diagnosis: (1) Primary localized osteoarthrosis, lower leg Diagnosis: Principal ICD Codes: M17.10 - Unilateral primary osteoarthritis, unspecified knee Status: Acute (2) Status post total knee replacement, left Diagnosis: Principal ICD Codes: Z96.652 - Presence of left artificial knee joint Procedures Left TKA Brief History This is a 72 year old female patient with severe OA of the left knee CBC/BMP: 10/28/17 0525 PE at Discharge Dressing is C/D/I. EHL/TA/G intact. 2+ pedal pulse. Calf is soft and nontender. + SILT. Hospital Course The patient was admitted to the hospital for severe OA of the left knee to have a TKA. The patient's surgery went well with no complication. The patient is WBAT. The patient is on a regular diet. The patient was placed on Lovenox followed by ASA for DVT prophylaxis. The patient was discharged home with home health. The patient will f/u with Dr. Montoya or MARGARITA Parker as previously scheduled Pt Condition on Discharge: Stable Discharge Disposition: Disch w/ Home Health Serv Discharge Instructions Diet Instructions: As Tolerated, No Restrictions Activities You Can Perform: Weight Bearing as Tin Activities to Avoid: Strenuous Activity Follow up Referrals: Appointment for Follow Up Orthopedics with Ramy Montoya MD New Medications: Amlodipine (Amlodipine) 2.5 Mg Tab 2.5 MG PO DAILY for Blood Pressure Management, #30 TAB 0 Refills Hold if systolic BP < 110 Commode 3-in-1 (Commode 3-in-1) 1 Mis Mis EA .ROUTE DIRECTED, #1 0 Refills CPM-Continuous Passive Motion Machine (CPM-Continuous Passive Motion Machine) 1 Ea Device EA .ROUTE DIRECTED, #1 0 Refills Metoprolol Tartrate (Metoprolol Tartrate) 25 Mg Tab 25 MG PO BID for Heart rate, #60 TAB 0 Refills Hold if systolic BP < 110 or Heart rate < 65 Walker with Front Wheels (Walker with Front Wheels) 1 Mis Mis EA .ROUTE DIRECTED, #1 0 Refills Continued Medications: Allopurinol (Allopurinol) 300 Mg Tab 300 MG PO DAILY for Gout, #30 TAB 0 Refills Atorvastatin (Atorvastatin) 20 Mg Tab 20 MG PO HS for Cholesterol Management, #30 TAB 0 Refills Diphenhydramine (Sleep) (Zzzquil) 25 Mg Cap 25 MG PO HS PRN for INSOMNIA, CAP 0 Refills Ezetimibe (Ezetimibe) 10 Mg Tab 10 MG PO DAILY, #30 TAB 0 Refills Discontinued Medications: Metoprolol Tartrate (Metoprolol Tartrate) 100 Mg Tab 100 MG PO BID, #60 TAB 0 Refills Simon Baumann Oct 31, 2017 22:21
== END 2017-10-28 16:45 | disposition home health service (06) | DRG 470 ==
LOC: HSDI 07:35 → N06B 17:03
PROVIDERS: ADMIT Orthopaedic Surgery; ATTEND Orthopaedic Surgery
PROC: 3E0T3BZ Introduction of Anesthetic Agent into Peripheral Nerves and Plexi, Percutaneous Approach (ICD-10-PCS; 2017-10-27)
PROC: 0SRD0J9 Replacement of Left Knee Joint with Synthetic Substitute, Cemented, Open Approach (ICD-10-PCS; principal; 2017-10-27 11:27)
DX: M17.12 Unilateral primary osteoarthritis, left knee (principal); I10 Essential (primary) hypertension; E78.5 Hyperlipidemia, unspecified; Z96.651 Presence of right artificial knee joint; Z23 Encounter for immunization
CPT/HCPCS: 73560; 85027; 86850; 86900; 86901; 90471; 90732; 94150; C1776; G0009; J0690; J0735; J1100; J1580; J1650; J1885; J2250; J2270; J2795; J3010; J3370; J7030; J7050; J7120; L1830